=== PATIENT | female | born 1995 | race Two or more races ===

== ENCOUNTER 2017-06-03 10:38 | Emergency (ER) | payer MEDICAID ==
[~2017-06-03] VITALS: Ht 165.1 cm; Wt 112.4 kg
[2017-06-03 10:42] VITALS: BP 135/97
== END 2017-06-03 11:09 | disposition home or self-care (01) ==
LOC: ED 11:00
DX: J02.0 Streptococcal pharyngitis (principal)
CPT/HCPCS: 99283

== ENCOUNTER 2019-10-26 23:26 | Emergency (ER) | payer SELFPAY ==
[~2019-10-26] VITALS: Ht 165.1 cm; Wt 114.8 kg
[~2019-10-26 23:26] MED LIST: CEPH-368 PO; ONDA4TAB13 PO; OXYC-302 PO
[2019-10-27] MEDS ORDERED: SODIUM CHLORIDE 0.9% 1,000ML IVBOLUS ONE
[2019-10-27] MEDS ORDERED: KETOROLAC 30 MG/1 ML IVPush ONE
[2019-10-27] MEDS ORDERED: ACETAMINOPHEN 500 MG TABLET PO ONE
[2019-10-27] MEDS ORDERED: SODIUM CHLORIDE FLUSH 10ML SYR IVF ONE
[2019-10-27 00:13] LABS: BASOPHILS # (AUTO) 0.02 x10^3/uL (0-0.1); BASOPHILS % (AUTO) 0 % (0-1); EOSINOPHILS # (AUTO) 0.01 x10^3/uL (0-0.4); EOSINOPHILS % (AUTO) 0 % (1-7); LYMPHOCYTES # (AUTO) 1.43 x10^3/uL (1-3.4); LYMPHOCYTES % (AUTO) 35 % (22-44); MD NO; MEAN CORPUSCULAR HEMOGLOBIN 27.2 pg (27.0-34.8); MEAN CORPUSCULAR HGB CONC 32.9 g/dL (32.4-35.8); MEAN CORPUSCULAR VOLUME 82.8 fL (80-100); MEAN PLATELET VOLUME 8.6 fL (7.4-10.4); MONOCYTES # (AUTO) 0.38 x10^3/uL (0.2-0.8); MONOCYTES % (AUTO) 9 % (2-9); NEUTROPHILS # (AUTO) 2.25 x10^3/uL (1.8-6.8); NEUTROPHILS % (AUTO) 55 % (42-75); PLATELET COUNT 176 x10^3/uL (130-400); RED CELL DISTRIBUTION WIDTH 13.2 % (9.6-15.2)
[2019-10-27] MEDS ORDERED: ACETAMINOPHEN 500 MG TABLET ONE (00:21)
[2019-10-27] MEDS ORDERED: KETOROLAC 30 MG/1 ML ONE (00:21)
[2019-10-27 00:22] LABS: ALANINE AMINOTRANSFERASE 155 U/L (12-78); ALBUMIN 3.6 g/dL (3.4-5.0); ANION GAP 6 mmol/L (5-15); CALCIUM 8.4 mg/dL (8.5-10.1); CHLORIDE 104 mmol/L (98-107); CREATININE 0.69 mg/dL (0.55-1.02)
[2019-10-27 00:29] LABS: ALKALINE PHOSPHATASE 101 U/L (45-117); BILIRUBIN,TOTAL 0.1 mg/dL (0.2-1.0); C-REACTIVE PROTEIN, QUANT 0.88 mg/dL (0.02-0.49); TOTAL PROTEIN 7.8 g/dL (6.4-8.2)
[2019-10-27 01:06] LABS: MICROSCOPIC INDICATED
[2019-10-27 01:27] VITALS: BP 130/80
--- NOTE | 2019-10-27 01:28 | NUR ---
TASK RN: Patient given discharge instructions and they have confirmed that they understand the instructions. Patient ambulatory with steady gait. DENIES ADDITIONAL NEEDS OR QUESTIONS AT THIS TIME. NAD. VSS. NO PT BELONGINGS LEFT IN ROOM AFTER DC.
== END 2019-10-27 01:46 | disposition home or self-care (01) ==
LOC: ED 10-27 00:54
DX: U07.1 COVID-19 (principal); R50.9 Fever, unspecified; R11.2 Nausea with vomiting, unspecified
CPT/HCPCS: 36415; 71045; 80053; 81001; 83605; 84145; 85025; 86140; 87040; 87086; 87635; 96361; 96374; 99284; J1885; J7030